=== PATIENT | female | born 1985 | race Hispanic/Latino ===

== ENCOUNTER 2022-04-17 14:58 | Inpatient (IN) | payer OTHER ==
[~2022-04-17] VITALS: Ht 167.6 cm; Wt 104.3 kg
[~2022-04-17 14:58] MED LIST: ACET1TAB12 PO; DOCU-116 PO; IBUP-2077 PO; PREN-147 PO
[2022-04-17 16:45] VITALS: BP 131/77
[2022-04-17] MEDS ORDERED: HYDROMORPHONE 1 MG INJ IVP PRN (19:30)
[2022-04-17] MEDS ORDERED: HYDROMORPHONE 0.5 MG SYG (0.5MG/0.5ML) IVP PRN (19:30)
[2022-04-17] MEDS ORDERED: HYDROMORPHONE 0.5 MG SYG (0.5MG/0.5ML) IM PRN (19:30)
[2022-04-17] MEDS ORDERED: ACETAMINOPHEN 325 MG TAB PO PRN ×2 (19:30)
[2022-04-17] MEDS ORDERED: ONDANSETRON 4MG INJ IV PRN (19:30)
[2022-04-17 19:33] VITALS: BP 129/77
[2022-04-17] MEDS ORDERED: ACET-66 PO (20:36)
[2022-04-17] MEDS ORDERED: BISM525O10 PO (20:36)
[2022-04-17] MEDS: ZOSYN 3.375GM+NS 50ML 50 ML IV SCH (20:56)
[2022-04-17] MEDS: 0.9%NACL 1000ML 1,000 ML IV SCH (20:56)
[2022-04-17 21:31] LABS: BASOPHILS % (AUTO) 0.1 % (0.0-5.0); EOSINOPHILS % (AUTO) 1.2 % (0.0-8.0); LYMPHOCYTES % (AUTO) 22.2 % (21.0-51.0); MEAN CORPUSCULAR HGB CONC 33.6 g/dL (32.0-36.0); MEAN CORPUSCULAR VOLUME 92.2 fL (79-99); MONOCYTES % (AUTO) 5.7 % (3.0-13.0); NEUTROPHILS % (AUTO) 70.5 % (40.0-77.0); PLATELET COUNT (AUTO) 229 K/uL (130-400); RED BLOOD CELL COUNT(AUTO) 4.23 MIL/uL (4.00-5.50); RED CELL DISTRIBUTION WIDTH 12.7 % (11.0-15.5); WHITE BLOOD COUNT (AUTO) 10.3 K/uL (4.8-10.8)
[2022-04-17 21:42] LABS: INR 0.98 (0.85-1.15); PROTHROMBIN TIME 10.7 SEC (9.6-11.6)
[2022-04-17 21:43] LABS: PARTIAL THROMBOPLASTIN TIME 27.6 SEC (26.3-35.5)
[2022-04-17 21:48] LABS: ALBUMIN 3.4 g/dL (3.5-5.0); CREATININE 0.8 mg/dL (0.5-1.5); POTASSIUM 3.2 mmol/L (3.5-5.1); TOTAL PROTEIN, SERUM 7.6 g/dL (6.0-8.3)
[2022-04-17] MEDS ORDERED: KCL 20 MEQ ERTAB PO ONE (23:00)
[2022-04-17 23:19] VITALS: BP 121/71
[2022-04-18] VITALS (21 sets, daily range): BP systolic 109–130; BP diastolic 56–83
[2022-04-18] MEDS: ZOSYN 3.375GM+NS 50ML 50 ML IV SCH ×3 (05:00→21:12)
[2022-04-18] MEDS: 0.9%NACL 1000ML 1,000 ML IV SCH (05:30)
[2022-04-18] MEDS ORDERED: LIDOCAINE HCL 1% 20 ML VIAL ONE (08:06)
[2022-04-18] MEDS ORDERED: BUPIVACAINE/PF 0.5% 10ML VIAL ONE (08:32)
[2022-04-18 08:33] LABS: BASOPHILS % (AUTO) 0.3 % (0.0-5.0); EOSINOPHILS % (AUTO) 1.4 % (0.0-8.0); HEMATOCRIT 37.8 % (36-48); MEAN CORPUSCULAR HEMOGLOBIN 31.8 pg (27.0-33.0); MEAN CORPUSCULAR HGB CONC 33.6 g/dL (32.0-36.0); MEAN CORPUSCULAR VOLUME 94.5 fL (79-99); MONOCYTES % (AUTO) 6.1 % (3.0-13.0); NEUTROPHILS % (AUTO) 67.9 % (40.0-77.0); PLATELET COUNT (AUTO) 229 K/uL (130-400); RED CELL DISTRIBUTION WIDTH 12.6 % (11.0-15.5); WHITE BLOOD COUNT (AUTO) 7.7 K/uL (4.8-10.8)
[2022-04-18 08:55] LABS: ALBUMIN 3.2 g/dL (3.5-5.0); CREATININE 0.8 mg/dL (0.5-1.5); POTASSIUM 4.1 mmol/L (3.5-5.1); TOTAL PROTEIN, SERUM 7.1 g/dL (6.0-8.3)
[2022-04-18] MEDS ORDERED: LIDOCAINE PF 100MG/5ML (2%) SYRINGE 5ML ONE (09:52)
[2022-04-18] MEDS ORDERED: DEXAMETHASONE SOD PHOSPHATE 10MG/ML 1ML VIAL ONE (09:52)
[2022-04-18] MEDS ORDERED: ONDANSETRON 4MG INJ ONE ×2 (09:52→11:31)
[2022-04-18] MEDS ORDERED: PROPOFOL 10 MG/ML 20ML VIAL IV ONE (09:53)
[2022-04-18] MEDS ORDERED: NEOSTIGMINE 5MG/5ML SYR IV ONE (09:53)
[2022-04-18] MEDS ORDERED: GLYCOPYRROLATE 1 MG/5 ML SYRINGE ONE (09:53)
[2022-04-18] MEDS ORDERED: MIDAZOLAM HCL 1 MG/ML 2ML VIAL ONE (09:53)
[2022-04-18] MEDS ORDERED: ROCURONIUM 10MG/1ML SYR 10 MG/ML ML ONE ×2 (09:53→10:42)
[2022-04-18] MEDS ORDERED: FENTANYL CITRATE PF 50 MCG/1 ML 2ML VIAL ONE (09:53)
[2022-04-18] MEDS ORDERED: PHENYLEPHRINE HCL 10 MG/ML 1ML VIAL IV ONE (10:30)
[2022-04-18] MEDS ORDERED: KETOROLAC 30MG VIAL (30MG/ML) ONE (11:31)
[2022-04-18] MEDS ORDERED: MEPERIDINE-PF 25 MG/ML SYG ONE ×2 (11:32→11:47)
[2022-04-18] MEDS: OXYCODONE/ACETAMIN 5/325MG TAB PO PRN (18:43)
[2022-04-19] MEDS: OXYCODONE/ACETAMIN 5/325MG TAB PO PRN (00:41)
[2022-04-19 02:54] VITALS: BP 112/66
[2022-04-19] MEDS: ZOSYN 3.375GM+NS 50ML 50 ML IV SCH (04:55)
[2022-04-19 07:22] VITALS: BP 111/64
[2022-04-19] MEDS ORDERED: POLY17PO4 PO (12:25)
[2022-04-19] MEDS ORDERED: ONDA22I PO (12:26)
[2022-04-19] MEDS ORDERED: AUGMENTIN PO (12:27)
[2022-04-19] MEDS ORDERED: ACET-2079 PO (12:35)
[2022-04-19 13:10] VITALS: BP 116/70
== END 2022-04-19 13:15 | disposition home or self-care (01) | DRG 343 ==
LOC: WSH 16:39 → UNDODISIN 04-19 13:15
PROVIDERS: ADMIT Internal Medicine; ATTEND Internal Medicine
PROC: 0DTJ4ZZ Resection of Appendix, Percutaneous Endoscopic Approach (ICD-10-PCS; principal; 2022-04-18 10:11)
DX: K35.20 Acute appendicitis with generalized peritonitis, without abscess (principal); E87.6 Hypokalemia; F17.210 Nicotine dependence, cigarettes, uncomplicated
CPT/HCPCS: 36415; 80053; 81025; 83735; 84145; 84703; 85025; 85610; 85730; A4344; G0378; J1100; J1885; J2001; J2175; J2250; J2370; J2405; J2543; J2704; J2710; J3010; J3490; J7030